=== PATIENT | male | born 1980 | race Caucasian/White ===

== ENCOUNTER → 2017-12-22 14:43 | Outpatient (CLI) | payer OTHER, SELFPAY ==
--- NOTE | 2017-12-22 | DI.CT.S_ITS ---
PROCEDURE: CT LUMBAR SPINE WO CON INDICATIONS: Lumbar spine radiculopathy TECHNIQUE: Noncontrast 3 mm thick sections acquired from the T12 level to the sacrum. Sagittal and coronal reformats were constructed. For radiation dose reduction, the following was used: automated exposure control. COMPARISON: None. FINDINGS: Image quality: Excellent. Bones: There is normal bony alignment. No acute vertebral body compression fractures. No suspicious lytic or blastic bony lesions. Central spinal caliber is of normal overall caliber. No pars defects. T12-L1: Within normal limits L1-L2: There is partial calcification seen along the posterior aspect of the annulus fibrosis, as on series 5 image 41. There is moderate bilateral neural foraminal narrowing. No significant central canal narrowing is seen. L2-L3: The disc height is well preserved. Mild generalized disc bulge is seen. Moderate bilateral neural foraminal narrowing is seen. Mild central canal narrowing is seen. L3-L4: The disc height is well-preserved. Mild generalized disc bulge is seen. Moderate bilateral neural foraminal narrowing is seen. No significant central canal narrowing is seen. L4-L5: The disc height is well-preserved. Mild generalized disc bulge is seen. Moderate bilateral neural foraminal narrowing is seen, left worse than right. No significant central canal narrowing is seen. L5-S1: The disc height is well-preserved. Mild generalized disc bulge is seen. Moderate to prominent facet hypertrophy is seen at this level. No significant central canal narrowing is seen. Soft tissues: No retroperitoneal masses or hematomas. Visualized aorta is normal in caliber. IMPRESSION: Multiple levels of lumbar spine degenerative change are seen, which are more prominent than would be expected for a patient of this relatively young age. The degenerative changes are most prominent inferiorly. Dictated by: Kumar Brooks M.D. on 12/22/2017 at 14:24 Approved by: Kumar Brooks M.D. on 12/22/2017 at 14:28
== END ==
PROVIDERS: Visit Provider Orthopaedic Surgery Orthopaedic Surgery of the Spine
DX: M51.16 Intervertebral disc disorders with radiculopathy, lumbar region (principal)
CPT/HCPCS: 72131

== ENCOUNTER 2018-09-10 17:25 | Emergency (ER) | payer OTHER, SELFPAY ==
[2018-09-10 17:30] VITALS: BP 151/70; PULSE 68; RESP 15; TEMP 36.8; O2SAT 99; BMI 36.6
--- NOTE | 2018-09-10 17:33 | ED.BACK ---
HPI - Back Pain/Injury <Kailey Purvis PA-C - Last Filed: 09/10/18 21:21> General Chief Complaint: Back Pain/Injury Stated Complaint: back pain Time Seen by Provider: 09/10/18 17:33 Source: patient Mode of arrival: ambulatory Limitations: no limitations History of Present Illness HPI Narrative: This 38-year-old male awoke with left upper/mid back pain that has gradually gotten worse all day. He feels like the muscles are tight and tender. Pain is worse with deep breath, cough, sneeze, or twisting or using the arm overhead. He denies any new exercises or specific trauma. He works as an electrician master and did not have any work related injury. Pain did worsen when at work today. He states that part of his back feels swollen. He states that he feels fine other than the pain. He denies any paresthesia or weakness in the extremities. He denies any bowel or bladder dysfunction or groin numbness. He has not had any rash. He denies any hematuria or urinary symptoms. He denies any dyspnea or wheeze. He denies any new pain or swelling in the extremities. He does have some history of degenerative disc disease but states this is different than pain he has had in the past. He tried some [facility] earlier but has not had any sustained relief. He does not have a PCP currently Related Data Previous Rx's Medication Instructions Recorded cyclobenzaprine 10 mg PO Q8H PRN #14 tab 09/10/18 lidocaine [Lidoderm] 2 patch TOP DAILY #30 each 09/10/18 meloxicam 15 mg PO DAILY #14 tab 09/10/18 Allergies Allergy/AdvReac Type Severity Reaction Status Date / Time No Known Drug Allergies Allergy Verified 09/10/18 17:30 Review of Systems <Kailey Purvis PA-C - Last Filed: 09/10/18 21:21> Review of Systems ROS Unobtainable: All systems reviewed & are unremarkable except as noted in HPI and below PFSH <Kailey Purvsi PA-C - Last Filed: 09/10/18 21:21> Medical History Degenerative disc disease, lumbar (Chronic) Degenerative disc disease, thoracic (Chronic) Surgical History Clavicle fracture (Resolved) History of skin graft (Resolved) Social History Smoking Status: Former smoker alcohol intake: never substance use type: marijuana Social History Smoking Status: Former smoker alcohol intake: never substance use type: marijuana Exam <Kailey Purvis PA-C - Last Filed: 09/10/18 21:21> Narrative Exam Narrative: GENERAL APPEARANCE: Patient sitting comfortably, in no distress. NECK/THYROID: Neck supple LUNGS: Clear to auscultation bilaterally. HEART: Regular rate and rhythm without murmur, normal S1, S2, no S3 or S4. EXTREMITIES: No edema. No calf tenderness NEUROLOGIC: Alert and oriented, normal speech, gait and coordination. MUSCULOSKELETAL: Tender over the left mid and upper trapezius musculature mainly in the midline where there are some palpable knots. Full range of motion of the upper extremities but tender with left shoulder cross-body abduction and overhead movement. No point tenderness over the thoracic or lumbar spine. DERMATOLOGIC: No exanthem Initial Vital Signs Initial Vital Signs: Vital Signs Temperature 98.2 F 09/10/18 17:30 Pulse Rate 68 09/10/18 17:30 Respiratory Rate 15 09/10/18 17:30 Blood Pressure 151/70 H 09/10/18 17:30 Pulse Oximetry 99 09/10/18 17:30 <Pantera Wiseman DO - Last Filed: 09/10/18 23:13> Initial Vital Signs Initial Vital Signs: Vital Signs Temperature 98.2 F 09/10/18 17:30 Pulse Rate 68 09/10/18 17:30 Respiratory Rate 15 09/10/18 17:30 Blood Pressure 151/70 H 09/10/18 17:30 Pulse Oximetry 99 09/10/18 17:30 Course <Kailey Purvis PA-C - Last Filed: 09/10/18 21:21> Orders Ordered: Discontinued Medications Cyclobenzaprine HCl (Flexeril) 10 mg PO NOW ONE Stop: 09/10/18 17:51 Last Admin: 09/10/18 18:09 Dose: 10 mg Ketorolac Tromethamine (Toradol) 60 mg IM NOW ONE Stop: 09/10/18 17:51 Last Admin: 09/10/18 18:09 Dose: 60 mg Lidocaine (Lidoderm) 1 each TOP NOW ONE Stop: 09/10/18 17:51 Last Admin: 09/10/18 18:09 Dose: 1 each Vital Signs - 8 hr 09/10/18 17:30 09/10/18 19:36 Temperature 98.2 F Pulse Rate 68 64 Respiratory Rate 15 16 Blood Pressure 151/70 H Blood Pressure [Left Arm] 113/74 Pulse Oximetry 99 98 <Pantera Wiseman DO - Last Filed: 09/10/18 23:13> Orders Ordered: Discontinued Medications Cyclobenzaprine HCl (Flexeril) 10 mg PO NOW ONE Stop: 09/10/18 17:51 Last Admin: 09/10/18 18:09 Dose: 10 mg Ketorolac Tromethamine (Toradol) 60 mg IM NOW ONE Stop: 09/10/18 17:51 Last Admin: 09/10/18 18:09 Dose: 60 mg Lidocaine (Lidoderm) 1 each TOP NOW ONE Stop: 09/10/18 17:51 Last Admin: 09/10/18 18:09 Dose: 1 each Vital Signs - 8 hr 09/10/18 17:30 09/10/18 19:36 Temperature 98.2 F Pulse Rate 68 64 Respiratory Rate 15 16 Blood Pressure 151/70 H Blood Pressure [Left Arm] 113/74 Pulse Oximetry 99 98 Discharge Plan Departure Patient Disposition: Home Clinical Impression: Strain of left trapezius muscle Qualifiers: Encounter type: initial encounter Qualified Code(s): S46.812A - Strain of other muscles, fascia and tendons at shoulder and upper arm level, left arm, initial encounter Discharge Date/Time: 09/10/18 19:40 Interventions: ED Discharge Assessment Last Done: 09/10/18 19:39 Instructions: DI for Back Strain or Sprain, Thoracic Back Pain Activity Restrictions/Additional Instructions: Please rest, and avoid movements that exacerbates or pain. Do the ?pillow hugging? technique that we talked about several times daily to help you take deep breaths. Take the anti-inflammatory/pain reliever meloxicam once daily (not with other NSAIDs), and also the muscle relaxant cyclobenzaprine up to every 8 hr as needed (do not drive as that may make you sleepy). You can also use the lidocaine patches for up to 12 hr daily. Return as we talked about if you have any acutely worsening symptoms or new symptoms such as fever, acute shortness of breath, numbness or weakness. Prescriptions: New cyclobenzaprine 10 mg tablet 10 mg PO Q8H PRN (Reason: muscle spasm) Qty: 14 RF: 0 meloxicam 15 mg tablet 15 mg PO DAILY Qty: 14 RF: 0 lidocaine [Lidoderm] 5 % adhesive patch,medicated 2 patch TOP DAILY Qty: 30 RF: 0 <Pantera Wiseman DO - Last Filed: 09/10/18 23:13> Cosign ED Attending Andrea Attestation: I was available for consultation during this patient's emergency department encounter
[2018-09-10] MEDS: CYCLOBENZAPRINE 10 MG TABLET PO (18:09)
[2018-09-10] MEDS: KETOROLAC 60 MG/2 ML VIAL IM (18:09)
[2018-09-10] MEDS: LIDOCAINE PATCH 1 EACH ADH..PATCH TOP (18:09)
[2018-09-10 19:36] VITALS: BP 113/74; PULSE 64; RESP 16; O2SAT 98
== END 2018-09-10 19:40 | disposition home or self-care (01) ==
PROVIDERS: Emergency Provider Internal Medicine
DX: S46.812A Strain of other muscles, fascia and tendons at shoulder and upper arm level, left arm, initial encounter (principal)
CPT/HCPCS: 96372; 99282; 99283; J1885

== ENCOUNTER 2019-03-01 06:22 | Emergency (ER) | payer OTHER, SELFPAY ==
[2019-03-01 06:30] VITALS: BP 126/82; PULSE 67; RESP 16; TEMP 36.6; O2SAT 95; BMI 36.9
--- NOTE | 2019-03-01 06:40 | ED.BACK ---
HPI - Back Pain/Injury General Chief Complaint: Back Pain/Injury Stated Complaint: lower back pain, cant bend thinks he pinched nerve Time Seen by Provider: 03/01/19 06:26 Source: patient Mode of arrival: ambulatory Limitations: no limitations History of Present Illness HPI Narrative: 38-year-old male smoker with benign medical history presents with a chief complaint of a sudden onset left lower back pain with radiation down his lateral hip when positioning self on a toilet. His pain is worse with motion and improves with rest. He denies numbness, tingling or weakness. He denies any trouble controlling bowel or bladder, he denies any numbness in his groin or weakness of his extremities MD Complaint: back pain and back injury Onset (ago): day(s) Duration: constant Similar Symptoms Previously: Yes Location: lumbar spine Severity: moderate Quality: sharp Radiation: left leg Relieving factors: immobilization Exacerbating factors: movement and walking Context: turning/twisting and bending Associated symptoms: denies other symptoms Treatments prior to arrival: NSAIDS and acetaminophen Related Data Previous Rx's Medication Instructions Recorded cyclobenzaprine 10 mg PO Q8H PRN #14 tab 09/10/18 lidocaine [Lidoderm] 2 patch TOP DAILY #30 each 09/10/18 meloxicam 15 mg PO DAILY #14 tab 09/10/18 cyclobenzaprine 10 mg PO TID PRN #14 tab 03/01/19 hydrocodone-acetaminophen 1 tab PO Q4-6H PRN #10 tab 03/01/19 ketorolac 10 mg PO Q6H PRN #14 tab 03/01/19 prednisone 20 mg PO DAILY #5 tab 03/01/19 Allergies Allergy/AdvReac Type Severity Reaction Status Date / Time No Known Drug Allergies Allergy Verified 09/10/18 17:30 Review of Systems Constitutional Denies chills, Denies fever(s), Denies lethargy and Denies weakness Eyes Denies change in vision, Denies eye discharge, Denies irritation and Denies loss of vision ENT Ears, Nose, Mouth, and Throat: Denies change in voice, Denies neck pain and Denies sore throat Cardiovascular Denies chest pain, Denies irregular heart rhythm, Denies lightheadedness, Denies palpitations, Denies dyspnea, Denies dyspnea on exertion and Denies orthopnea Respiratory Denies cough, Denies dyspnea, Denies dyspnea on exertion and Denies wheezing Gastrointestinal Gastrointestinal: Denies abdominal pain, Denies change in bowel habits, Denies diarrhea, Denies nausea and Denies vomiting Genitourinary Denies hematuria, Denies flank pain, Denies urinary incontinence and Denies urinary urgency Musculoskeletal Reports abnormal gait, Reports back pain, Reports limited range of motion and Denies neck pain Integumentary/Breasts Denies pruritus, Denies erythema, Denies rash and Denies wounds Neurologic Reports abnormal gait, Denies confusion, Denies loss of vision and Denies weakness Psychiatric Denies anxiety, Denies confusion, Denies depression, Denies homicidal ideation and Denies suicidal ideation Endocrine Denies palpitations Hematologic/Lymphatic Denies easy bruising Allergic/Immunologic Denies wheezing [facility] Medical History Degenerative disc disease, lumbar (Chronic) Degenerative disc disease, thoracic (Chronic) Surgical History Clavicle fracture (Resolved) History of skin graft (Resolved) Social History Smoking Status: Former smoker alcohol intake: never substance use type: marijuana Social History Smoking Status: Former smoker alcohol intake: never substance use type: marijuana Exam Narrative Exam Narrative: GENERAL: [38] year old patient appears stated age. Well-nourished, well-developed patient, in mild distress. HEAD: Atraumatic. Normocephalic. EYES: Pupils equal round and reactive. Extraocular motions intact. No scleral icterus. No injection or drainage. ENT: Nose without bleeding, purulent drainage. Throat without erythema, tonsillar hypertrophy or exudate. Airway patent. NECK: Trachea midline. Non tender CARDIOVASCULAR: Regular rate and rhythm without murmurs, gallops, or rubs. RESPIRATORY: Clear to auscultation. Breath sounds equal bilaterally. No wheezes, rales, or rhonchi. GASTROINTESTINAL: Abdomen soft, non-tender, nondistended. EXTREMITIES: No edema or joint tenderness. BACK: chicken tender but free of any obvious external abnormalities. Patient exam notes decreased range of motion and muscle spasm, but no CVA tenderness, or vertebral point tenderness. There are no symptoms of cauda equina such as saddle anesthesia, and decreased reflexes, decreased sensation or strength. NEURO: AOx3. SKIN: No rash or erythema of visible areas Initial Vital Signs Initial Vital Signs: Vital Signs Temperature 97.8 F 03/01/19 06:30 Pulse Rate 67 03/01/19 06:30 Respiratory Rate 16 03/01/19 06:30 Blood Pressure 126/82 03/01/19 06:30 Pulse Oximetry 95 03/01/19 06:30 Course Orders Ordered: Discontinued Medications Hydrocodone Bitart/Acetaminophen (Vicodin Prepack) 1 bottle MISC SEEINSTR ONE Stop: 03/01/19 06:50 Last Admin: 03/01/19 06:57 Dose: 1 bottle Ketorolac Tromethamine (Toradol) 60 mg IM NOW ONE Stop: 03/01/19 06:50 Last Admin: 03/01/19 06:56 Dose: 60 mg Vital Signs - 8 hr 03/01/19 06:30 Temperature 97.8 F Pulse Rate 67 Respiratory Rate 16 Blood Pressure 126/82 Pulse Oximetry 95 MDM - Back Pain/Injury MDM Narrative Medical decision making narrative: Multiple etiologies of back pain considered including; Epidural abscess, cauda equina, mass occupying lesion, and other considered Patient's symptoms improved or duration of stay with above-stated therapies. Findings and discharge diagnosis discussed with patient/family followed by verbalization of understanding Return precautions discussed with patient/family whom verbalize understanding. Discharge Plan Departure Patient Disposition: Home Clinical Impression: Lumbar radiculopathy Low back strain Qualifiers: Encounter type: initial encounter Qualified Code(s): S39.012A - Strain of muscle, fascia and tendon of lower back, initial encounter Discharge Date/Time: 03/01/19 07:12 Interventions: ED Discharge Assessment Last Done: 03/01/19 07:24 Instructions: DI for Back Spasm Activity Restrictions/Additional Instructions: *You have been diagnosed with [lumbar pain with radiculopathy] *What to do: *Take medications as directed *Follow up with your primary care provider in 2-3 days, call for an appointment. Let them know you were seen in the Emergency Department and that we ask that you be seen in follow up *Return to ER if you should have any new, worsening or concerning symptoms, such as [worsening pain, weakness in her left leg, loss of control of bowel or bladder, or other bothersome symptoms] Prescriptions: New cyclobenzaprine 10 mg tablet 10 mg PO TID PRN (Reason: muscle spasm) Qty: 14 RF: 0 hydrocodone-acetaminophen 5-325 mg tablet 1 tab PO Q4-6H PRN (Reason: pain) Qty: 10 RF: 0 prednisone 20 mg tablet 20 mg PO DAILY Qty: 5 RF: 0 ketorolac 10 mg tablet 10 mg PO Q6H PRN (Reason: pain) Qty: 14 RF: 0 No Action cyclobenzaprine 10 mg tablet 10 mg PO Q8H PRN (Reason: muscle spasm) Qty: 14 RF: 0 meloxicam 15 mg tablet 15 mg PO DAILY Qty: 14 RF: 0 lidocaine [Lidoderm] 5 % adhesive patch,medicated 2 patch TOP DAILY Qty: 30 RF: 0 Referrals: Rosmery Hart MD [Primary Care Provider] -
[2019-03-01] MEDS: KETOROLAC 60 MG/2 ML VIAL IM (06:56)
[2019-03-01] MEDS: HYDROCODONE/ACET 5/325 PREPACK 1 BOTTLE MISC (06:57)
== END 2019-03-01 07:12 | disposition home or self-care (01) ==
LOC: ED 07:14
PROVIDERS: Emergency Provider Emergency Medicine; PCP Family Medicine
DX: M54.16 Radiculopathy, lumbar region (principal); S39.012A Strain of muscle, fascia and tendon of lower back, initial encounter
CPT/HCPCS: 96372; 99282; 99283; J1885

== ENCOUNTER 2019-11-01 08:22 | Emergency (ER) | payer OTHER, SELFPAY ==
[2019-11-01 08:30] VITALS: BP 131/71; PULSE 52; RESP 16; TEMP 36.5; O2SAT 98
[2019-11-01] MEDS: KETOROLAC 60 MG/2 ML VIAL 30 MG IM (08:58)
--- NOTE | 2019-11-01 09:23 | ED_ITS ---
HPI - Back Pain/Injury General Chief Complaint: Back Pain/Injury Stated Complaint: Lower back pain x5 Time Seen by Provider: 11/01/19 08:38 Source: patient Limitations: no limitations History of Present Illness HPI Narrative: 39-year-old gentleman with a history of prior low back pain who has seen her primary care, chiropractor, acupuncture, physical therapy and is seemingly doing everything appropriate. [place] a strain to his back 5 days ago while working out. Four days ago noticed actual pain that seemed to be improving until 2 days ago when he was bent twisted and then experienced severe pain that seems like it is getting worse. He is experiencing some sciatic type pain with significant movement. He has taken minimal pain medication and presents today wondering what options there are for treating his pain and helping him get back to full health. Related Data Previous Rx's Medication Instructions Recorded dexamethasone 8 mg PO DAILY 3 Days #6 tab 11/01/19 naproxen 500 mg PO BID PRN #60 tab 11/01/19 Allergies Allergy/AdvReac Type Severity Reaction Status Date / Time No Known Drug Allergies Allergy Verified 11/01/19 08:35 Review of Systems Review of Systems Narrative: Denies ? fever ? cough ? cold ? chills ? chest pain ? dyspnea ? orthopnea ? wheezing ? abdominal pain ? change to bowel or bladder habits ? nausea vomiting ? skin changes ? rashes Patient History Medical History Degenerative disc disease, lumbar (Chronic) Degenerative disc disease, thoracic (Chronic) Surgical History Clavicle fracture (Resolved) History of skin graft (Resolved) Social History Smoking Status: Former smoker alcohol intake: never substance use type: marijuana Smoking Status: Former smoker alcohol intake frequency: holidays/special occasions only Substance Use Type: marijuana Exam Narrative Exam Narrative: General: Alert appropriate in no acute distress Respiratory: Able to speak in full sentences, no obvious respiratory distress Skin: No obvious rashes, warm and dry Neurologic: Grossly intact no obvious asymmetries or abnormalities Psych, appropriate insight and affect, cooperative Spine: Tenderness along the left lumbar area with muscle spasm but no rash. Deep tendon reflexes are intact. No sensation loss no point tenderness along t he spine or interspinous spaces midline Initial Vital Signs Initial Vital Signs: Vital Signs Temperature 97.7 F 11/01/19 08:30 Pulse Rate 52 L 11/01/19 08:30 Respiratory Rate 16 11/01/19 08:30 Blood Pressure 131/71 11/01/19 08:30 Pulse Oximetry 98 11/01/19 08:30 Course Orders Ordered: Discontinued Medications Ketorolac Tromethamine (Toradol) 30 mg IM NOW ONE Stop: 11/01/19 08:55 Last Admin: 11/01/19 08:58 Dose: 30 mg Documented by: JOHN Vital Signs Vital signs: Vital Signs - 8 hr 11/01/19 08:30 Temperature 97.7 F Pulse Rate 52 L Respiratory Rate 16 Blood Pressure 131/71 Pulse Oximetry 98 MDM - Back Pain/Injury Lab Data Labs: Urine Dip Bedside Urine Glucose Negative Bedside Urine Bilirubin - Negative Bedside Urine Ketone +/- 5 Urine Specific [place] 1.025 Bedside Urine Occult Blood - Negative Bedside Urine pH 6.0 Bedside Urine Protein +/- 15 Bedside Urine Urobilinogen +/- 1mg Bedside Urine Nitrite - Negative Bedside Urine Leukocytes +/- 15 Esterase Discharge Plan Departure Patient Disposition: Home Clinical Impression: Acute back pain Qualifiers: Back pain location: low back pain Back pain laterality: left Sciatica presence: with sciatica Sciatica laterality: sciatica of left side Qualified Code(s): M54.42 - Lumbago with sciatica, left side Instructions: DI for Back Pain With Sciatica Activity Restrictions/Additional Instructions: Thank you for coming in today Your back pain is presenting very much like regular every day, frustrating and painful back pain without evidence of severe complications like infections, tumors or fractures. It sounds like you have been doing all of the right things so far. For your acute pain at this time I have given you a shot of Toradol in the emergency room. I am going to give you a prescription for 3 days of Decadron, a powerful steroid to reduce inflammation. I am also going to recommend that you take Naprosyn, a nonsteroidal pain medicine, every day morning and night for the next week and then as needed after that. If you are having pain during the day or more in the evening it is okay to mix Tylenol and Naprosyn and you may find that the Tylenol is much more effective when you have already taken the Naprosyn. Both of these medications have been electronically transmitted to [facility] in [place] for you to pick up operator today I am also going to suggest that you consider following up with physical therapy. My recommendation would be to try [facility]. His office is [place] and the phone number is [phone] I hope you feel better soon Prescriptions: New dexamethasone 4 mg tablet 8 mg PO DAILY 3 Days Qty: 6 RF: 0 naproxen 500 mg tablet 500 mg PO BID PRN (Reason: pain) Qty: 60 RF: 0 Referrals: Rosmery Hart MD [Primary Care Provider] -
[2019-11-01 09:37] VITALS: BP 122/71; PULSE 60; RESP 14; O2SAT 99
== END 2019-11-01 09:40 | disposition home or self-care (01) ==
PROVIDERS: Emergency Provider Emergency Medicine; PCP Family Medicine
DX: M54.42 Lumbago with sciatica, left side (principal)
CPT/HCPCS: 81003; 96372; 99283; J1885

== ENCOUNTER → 2020-07-05 06:34 | Outpatient (CLI) | payer OTHER, SELFPAY ==
--- NOTE | 2020-07-05 | DI.MRI.S_ITS ---
PROCEDURE: MR SHOULDER RT WO CON INDICATIONS: Pain in right shoulder TECHNIQUE: Noncontrast oblique coronal T2 fast spin echo with fat saturation, oblique sagittal T1 spin echo and T2 fast spin echo with fat saturation, axial T1 spin echo and T2 fast spin echo with fat saturation through the shoulder. COMPARISON: [facility], CR, XR SHOULDER 2+ VIEWS RIGHT, 06/22/2020, 9:19. FINDINGS: Image quality: Excellent. Rotator cuff: Mild T2 signal elevation throughout the supraspinatus tendon at the humeral insertion site is present, indicating tendinopathy. There is superimposed high-grade intrasubstance and articular surface tearing of the anterior and mid supraspinatus tendon at the humeral insertion site extending to the musculotendinous junction. Superimposed low-grade intrasubstance tearing of the posterior supraspinatus tendon at the humeral insertion site. There is low-grade partial-thickness intrasubstance tearing of the mid and anterior infraspinatus tendon at the humeral insertion site. There is low-grade partial-thickness articular surface tearing of the superior aspect of the subscapularis tendon at the humeral insertion site, extending from musculotendinous junction. Teres minor is intact. Bones and bursae: No bone marrow contusions or fractures. Moderate acromioclavicular joint degeneration. The acromion demonstrates conventional anatomy, without an os acromiale. A small amount of subacromial-subdeltoid or subcoracoid bursal fluid is present. Capsule and soft tissues: In the absence of intra-articular contrast, the labrum and glenohumeral ligaments appear intact. The long head of the biceps tendon demonstrates normal location and morphology. The rotator interval appears normal, without fibrosis. The coracohumeral ligament is normal in thickness. IMPRESSION: 1. 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 2. Low-grade partial-thickness tearing of the infraspinatus and subscapularis tendons. 3. Acromioclavicular joint osteoarthritis. 4. Subacromial bursitis. Dictated by: Dale Marie M.D. on 07/05/2020 at 9:21 Approved by: Dale Marie M.D. on 07/05/2020 at 9:24
== END ==
PROVIDERS: PCP Family Medicine; Referring Provider Family Medicine; Visit Provider Orthopaedic Surgery
DX: M25.511 Pain in right shoulder (principal); M75.111 Incomplete rotator cuff tear or rupture of right shoulder, not specified as traumatic; M19.011 Primary osteoarthritis, right shoulder; M75.51 Bursitis of right shoulder
CPT/HCPCS: 73221